=== PATIENT | male | born 1950 | race American Indian/Alaskan Native ===

== ENCOUNTER 2020-03-13 06:08 | Observation (INO) | payer BC, MEDICARE ==
--- NOTE | 2020-03-06 13:36 | Anesthesia Consultation ---
Anesthesia Consult and Med Hx Date of service: 03/13/20 - Airway Anesthetic Teeth Evaluation: Dentures, Edentulous ROM Head & Neck: Adequate Mental/Hyoid Distance: Adequate Mallampati Class: Class II Intubation Access Assessment: Good - Pre-Operative Health Status ASA Pre-Surgery Classification: ASA2 Proposed Anesthetic Plan: General - Pulmonary Hx Smoking: Yes (1/2 PPD X 10 YRS) Hx Respiratory Symptoms: No (+2FS) Hx Sleep Apnea: No (PETR PRE SCREEN HIGH RISK) - Cardiovascular System Hx Hypertension: Yes (X 10 YRS) Hx Heart Murmur: Yes (CAUSES NO PROBLEMS) - Central Nervous System Hx Psychiatric Problems: No - Gastrointestinal Hx Gastroesophageal Reflux Disease: No - Endocrine Hx Renal Disease: No Hx Non-Insulin Dependent Diabetes: Yes - Hematic Hx Anemia: No Hx Sickle Cell Disease: No - Other Systems Hx Obesity: Yes
[2020-03-06 14:04] LABS: Alanine Aminotransferase 47 units/L (7-56); Albumin 4.4 g/dL (3.9-5); BUN/Creatinine Ratio 13; Blood Urea Nitrogen 14 mg/dL (9-20); Hemolysis Index 7
[2020-03-06 18:05] LABS: Basophils # (Auto) 0.2 K/mm3 (0.0-0.1); Eosinophils # (Auto) 0.1 K/mm3 (0.0-0.4); Eosinophils % (Auto) 1.8 % (0.0-4.3); Hematocrit 42.6 % (35.5-45.6); Hemoglobin 13.7 gm/dl (11.8-15.2); Lymphocytes # (Auto) 3.7 K/mm3 (1.2-5.4); Lymphocytes % (Auto) 45.4 % (13.4-35.0); Mean Corpuscular HGB Conc 32 % (32-34); Mean Corpuscular Volume 72 fl (84-94); Monocytes # (Auto) 0.4 K/mm3 (0.0-0.8); Monocytes % (Auto) 4.6 % (0.0-7.3); Platelet Count 225 K/mm3 (140-440); Red Cell Distribution Width 15.7 % (13.2-15.2)
[~2020-03-13 06:08] MED LIST: ACETAMINOPHEN 500 MG TAB PO NR; BACTERIOSTATIC SODIUM CHLORIDE 0.9% 30 ML VIAL INFILTRATI ONE; CELECOXIB 200 MG CAP PO NR; GABAPENTIN 300 MG CAP PO NR; LACTATED RINGERS 1,000 ML IV SCH; MAGNESIUM OXIDE 400 MG TAB PO NR; MIDAZOLAM 2 MG/2 ML INJ IV NR
[2020-03-13] MEDS ORDERED: CITRIC ACID-SOD CITRATE 500 ML IV ONE (07:02)
[2020-03-13] MEDS ORDERED: METHYLENE BLUE 50 MG/10 ML AMP ONE (07:03)
[2020-03-13] MEDS ORDERED: BUPIVACAINE-EPINEPHRINE/PF 0.5%-1:200,000 (30 ML) VIAL INFILTRATI ONE ×2 (07:03→08:30)
[2020-03-13] MEDS ORDERED: THROMBIN (RECOMBINANT) 5,000 UNIT VIAL TP ONE ×2 (07:04→10:00)
[2020-03-13] MEDS ORDERED: HYDROmorphone 1 MG/1 ML INJ ONE (07:15)
[2020-03-13] MEDS ORDERED: ROCURONIUM 50 MG/5 ML INJ IV ONE ×2 (07:15→08:47)
[2020-03-13] MEDS ORDERED: LIDOCAINE MPF (2%) 20 MG/1 ML VIAL 5 ML ONE (07:15)
[2020-03-13] MEDS ORDERED: propofoL 200 MG/20 ML VIAL IV ONE (07:15)
[2020-03-13] MEDS ORDERED: CALCIUM CHLORIDE 1,000 MG/10 ML SYRINGE IV ONE ×2 (07:17→10:00)
[2020-03-13] MEDS ORDERED: HYDROmorphone 1 MG/1 ML INJ IV PRN (07:23)
[2020-03-13] MEDS ORDERED: ONDANSETRON 4 MG/2 ML INJ IV PRN ×2 (07:23→11:00)
--- NOTE | 2020-03-13 07:23 | Anesthesia Day of Surgery ---
Anesthesia Day of Surgery - Day of Surgery Patient Examined: Yes Patient H&P Reviewed: Yes Patient is NPO: Yes Beta Blockers: Yes (bystolic today AM)
[2020-03-13] MEDS ORDERED: CITRIC ACID-SOD CITRATE SOLN 500 ML IV SOLN IV ONE (08:30)
[2020-03-13] MEDS ORDERED: SODIUM CHLORIDE 0.9% IRRIG SOLN 2000 ML IR ONE (08:30)
[2020-03-13] MEDS ORDERED: WATER FOR IRRIG STERILE 1,500 ML BOTTLE IR ONE (08:30)
[2020-03-13] MEDS ORDERED: SODIUM CHLORIDE 0.9% IRR 1,500 ML BOTTLE IR ONE (08:31)
[2020-03-13] MEDS ORDERED: METHYLENE BLUE 50 MG/10 ML AMP IV ONE (09:57)
[2020-03-13] MEDS ORDERED: SODIUM CHLORIDE 0.9% 1000 ML 1,000 ML ONE (10:12)
[2020-03-13] MEDS ORDERED: GLYCOPYRROLATE 0.4 MG/2 ML INJ ONE (10:29)
[2020-03-13] MEDS ORDERED: NEOSTIGMINE 10MG/10 ML INJ MDV ONE (10:29)
[2020-03-13] MEDS ORDERED: ONDANSETRON 4 MG/2 ML INJ ONE (10:34)
[2020-03-13] MEDS ORDERED: KETOROLAC 30 MG/1 ML INJ ONE (10:34)
--- NOTE | 2020-03-13 10:39 | Short Stay Summary ---
Short Stay Documentation Date of service: 03/13/20 - History H&P: obtained from office - Allergies and Medications Current Medications: Allergies Penicillins Allergy (Verified 03/02/20 17:18) Rash Home Medications Medication Instructions Recorded Confirmed Last Taken Type Aspirin [Adult Aspirin] 81 mg PO DAILY 03/03/20 03/13/20 1 Week Ago History ~03/06/20 AtorvaSTATin [Lipitor] 20 mg PO DAILY 03/06/20 03/06/20 03/12/20 History Glimepiride [Amaryl] 2 mg PO DAILY 03/06/20 03/06/20 03/12/20 History Nebivolol HCl [Bystolic] 5 mg PO DAILY 03/06/20 03/13/20 03/13/20 05:00 History Sitagliptin Phos/Metformin HCl 1 each PO DAILY 03/06/20 03/06/20 03/12/20 History [Janumet 50-1,000 mg Tablet] Valsartan/Hydrochlorothiazide 1 each PO DAILY 03/06/20 03/06/20 03/12/20 History [Valsartan-Hctz 320-25 mg Tab] allopurinoL [Zyloprim] 200 mg PO QDAY 03/06/20 03/06/20 03/12/20 History amLODIPine [Norvasc] 10 mg PO DAILY 03/06/20 03/06/20 03/12/20 History Active Medications Acetaminophen (Acetaminophen 500 Mg Tab) 1,000 mg PO ONCE NR Stop: 03/13/20 20:00 Last Admin: 03/13/20 06:45 Dose: 1,000 mg Documented by: Celecoxib (Celecoxib 200 Mg Cap) 200 mg PO PREOP NR Stop: 03/13/20 20:00 Last Admin: 03/13/20 06:45 Dose: 200 mg Documented by: Gabapentin (Gabapentin 300 Mg Cap) 300 mg PO PREOP NR Stop: 03/13/20 20:00 Last Admin: 03/13/20 06:45 Dose: 300 mg Documented by: Hydromorphone HCl (Hydromorphone 1 Mg/1 Ml Inj) 0.5 mg IV Q10MIN PRN PRN Reason: Pain , Severe (7-10) Stop: 03/13/20 22:00 Lactated Ringer's (Lactated Ringers) 1,000 mls @ 125 mls/hr IV DIRECT PADMINI Last Admin: 03/13/20 06:35 Dose: 125 mls/hr Documented by: Magnesium Oxide (Magnesium Oxide 400 Mg Tab) 400 mg PO ONCE NR Stop: 03/13/20 20:00 Last Admin: 03/13/20 06:45 Dose: 400 mg Documented by: Midazolam HCl (Midazolam 2 Mg/2 Ml Inj) 2 mg IV PREOP NR Stop: 03/13/20 16:00 Last Admin: 03/13/20 06:50 Dose: 2 mg Documented by: - Brief post op/procedure progress note Date of procedure: 03/13/20 Pre-op diagnosis: prostate cancer Post-op diagnosis: same Procedure: robotic prostatectomy Anesthesia: GETA Surgeon: CARLI WEINBERG Estimated blood loss: other (400cc) Pathology: list (prostate) Specimen disposition: to lab Condition: stable - Hospital course Hospital course: bactrim,norco, post op info on chart gopal removed home with augustin - Disposition Condition at discharge: Stable Short Stay Discharge Plan Follow up with: CELIA SOUZA [Other] - 7 Days
[2020-03-13] MEDS ORDERED: SODIUM CHLORIDE 0.9% 1000 ML 1,000 ML IV SCH (10:45)
[2020-03-13] MEDS ORDERED: DEXTROSE 50% IN WATER (25GM) 50 ML SYRINGE IV PRN (11:00)
[2020-03-13] MEDS ORDERED: HYDROcodone/ACETAMINOPHEN 5-325 MG TAB PO PRN (11:00)
[2020-03-13] MEDS ORDERED: MORPHINE 2 MG/1 ML INJ IV PRN (11:00)
[2020-03-13] MEDS ORDERED: NALOXONE 0.4 MG/1 ML INJ IV PRN (11:00)
--- NOTE | 2020-03-13 11:13 | Operative Report ---
PREOPERATIVE DIAGNOSIS: Prostate cancer. POSTOPERATIVE DIAGNOSIS: Prostate cancer. PROCEDURE: Robotic-assisted laparoscopic prostatectomy, bladder neck suspension. SURGEON: Travis Romeo MD SOFTBALL COACH: Viv Soares. ESTIMATED BLOOD LOSS: 400 mL. FLUIDS: Crystalloid, 250 of Cell Saver. DRAINS: Justin-Joel drain. COMPLICATIONS: No complications. INDICATIONS: This 69-year-old gentleman initially seen by Dr. Gayle and was diagnosed with prostate cancer. After discussing options, he voiced interest in robotic prostatectomy. He was seen in consultation with his . Risks, benefits, and complications were explained. The patient agreed to proceed with surgical intervention. DESCRIPTION OF PROCEDURE: The patient was taken to the operative suite, placed in a supine position. After adequate general anesthesia, he was then placed in a modified dorsal lithotomy position, prepped and draped in the sterile fashion. Goncalves catheter was placed on the operative field, 1 cm supraumbilical incision was made. Towel clips were placed. Anterior traction was performed. Veress needle was used. Drop test negative. CO2 was placed. Opening pressure was 3 cm of water. Insufflation to 15 cm of water was performed without difficulty. The patient was placed in exaggerated Trendelenburg position. A 10 mm trocar with a 0-degree lens was placed in the abdomen without difficulty. No signs of injury as well as no signs of metastasis, 15 cm cephalad the pubic symphysis and then 9 cm lateral and an additional 9 cm lateral, those measurements were used to place robotic ports, 8 mm ports x2 on the left, 8 mm port and a 10 mm helper port on the right. Also, a 5 mm helper port on the right. Attention was then taken to the posterior aspect of the prostate. It was grasped. The bladder was grabbed with the robotic arm. Second arch was scored exposing the seminal vesicles and vas deferens. Dissection was taken to the apex of the prostate without difficulty. Next, attention was taken to the anterior abdominal wall, which was scored lateral to the lateral umbilical ligament and then across the midline, bladder flap was created exposing the pubic rami bilaterally. Dissection to the dorsal vein complex and pelvic sidewall. Dorsal vein complex was controlled with a 60 mm vascular stapler. There was some tedious bleeding and therefore was oversewn with a 2-0 Vicryl in a [id number] fashion. Endopelvic fascia was opened bilaterally. Lateral pedicles were dissected. Attention was taken to the anterior bladder neck, which was scored exposing the Goncalves catheter, it was deflated, pulled up and used for anterior traction. Methylene blue was administered intravenously, could be appreciated in the ureteral orifices. Posterior bladder neck was transected exposing the seminal vesicles and vas deferens, which was pulled anteriorly. Lateral pedicles were then controlled with a 60 mm vascular stapler bilaterally. Significant adipose tissue could be appreciated. Neurovascular bundle could not be appreciated as well as he had some small periprostatic blood vessels. Dissection was taken to the apex of the prostate. Anterior urethra was transected exposing the Goncalves catheter, which was pulled to the distal aspect of the urethra. Posterior aspect was transected and dissected out. Prostate was then placed in the EndoCatch bag. Copious irrigation was performed. Adequate hemostasis was achieved. There was no rectal injury. Next, attention was taken to the bladder neck at the 7 o'clock and 5 o'clock positions. A 2-0 Vicryl was used for bladder neck reconstruction to the size to accommodate an 18-Maldivian Goncalves. Next, using a double arm V-Loc stitch starting at the 6 o'clock position of the bladder neck and the corresponding aspect of the urethra, running stitch was performed. A new 18-Maldivian Goncalves catheter was then placed in the urethra and bladder. Anastomosis was cinched down, 15 mL sterile water in the balloon. Bladder was irrigated free of clot. Bladder neck suspension was performed placing the V-Loc stitch in the posterior aspect of the pubic rami bilaterally. [place] were cut and removed. Platelet-rich plasma and platelet poor plasma was injected around the urethra as well as a platelet membrane. Justin-Joel drain was placed in the pelvis and brought out on the left side, removing the #2 port. Ports were removed. No signs of bleeding. Robot was undocked. The supraumbilical incision was extended slightly to allow removal of the prostate. A 0 Vicryl was used to close the supraumbilical incision in an interrupted fashion. The skin was closed with 2-0 Vicryl in an interrupted fashion. Justin-Joel drain was secured with a 2-0 silk in interrupted fashion on the skin. Goncalves catheter sideport was folded over and tied with 0 silk in interrupted fashion. The patient tolerated the procedure well and was extubated and taken to recovery room. He will be observed overnight and go home on Bactrim and Andrew. Viv Soares was present throughout the procedure to assist at the bedside. JOB# [id number] [facility]
--- NOTE | 2020-03-13 12:42 | Post Anesthesia Evaluation ---
- Post Anesthesia Evaluation Patient Participated: Yes Airway Patent: Yes Stable Respiratory Function: Yes Nausea/Vomiting: No Temp > 96.8F: Yes Pain Manageable: Yes Adequeate Hydration: Yes Anesthesia Complications: No
[2020-03-13] MEDS: metFORMIN XR 500MG TAB PO SCH (15:43)
[2020-03-13] MEDS: METOPROLOL SUCCINATE XL 50 MG TAB PO SCH (15:45)
[2020-03-13] MEDS: hydroCHLOROthiazide 25 MG TAB PO SCH (15:45)
[2020-03-13] MEDS: LINAGLIPTIN 5 MG TAB PO SCH (15:46)
--- NOTE | 2020-03-13 16:23 | Consultation ---
History of Present Illness - Reason for Consult Consult date: 03/13/20 Diabetes Mellitus Requesting physician: CARLI WEINBERG - History of Present Illness Patient is a 69 year old male with past medical hx of HTN, Diabetes mellitus who presented for robotic prostatectomy Which was done successfully without any complaints. He at this time denies any chest pain, nausea vomiting, he reports mid discomfort at the surgical site. He reports that his DM and BP are well m anaged at home but that he unfortunately smokes half a pack a year for many years now. Past History Past Medical History: diabetes, hypertension, hyperlipidemia, other (prostate CA) Past Surgical History: Other (robotic prostatectomy) Social history: no significant social history, lives with family, full code Family history: no significant family history Medications and Allergies Allergies Allergy/AdvReac Type Severity Reaction Status Date / Time Penicillins Allergy Rash Verified 03/02/20 17:18 Home Medications Medication Instructions Recorded Confirmed Last Taken Type Aspirin [Adult Aspirin] 81 mg PO DAILY 03/03/20 03/13/20 1 Week Ago History ~03/06/20 AtorvaSTATin [Lipitor] 20 mg PO DAILY 03/06/20 03/06/20 03/12/20 History Glimepiride [Amaryl] 2 mg PO DAILY 03/06/20 03/06/20 03/12/20 History Nebivolol HCl [Bystolic] 5 mg PO DAILY 03/06/20 03/13/20 03/13/20 05:00 History Sitagliptin Phos/Metformin HCl 1 each PO DAILY 03/06/20 03/06/20 03/12/20 History [Janumet 50-1,000 mg Tablet] Valsartan/Hydrochlorothiazide 1 each PO DAILY 03/06/20 03/06/20 03/12/20 History [Valsartan-Hctz 320-25 mg Tab] allopurinoL [Zyloprim] 200 mg PO QDAY 03/06/20 03/06/20 03/12/20 History amLODIPine [Norvasc] 10 mg PO DAILY 03/06/20 03/06/20 03/12/20 History Active Meds: Active Medications Acetaminophen (Acetaminophen 500 Mg Tab) 1,000 mg PO ONCE NR Stop: 03/13/20 20:00 Last Admin: 03/13/20 06:45 Dose: 1,000 mg Documented by: Hydrocodone Bitart/Acetaminophen (Hydrocodone/Acetaminophen 5-325 Mg Tab) 2 each PO Q4H PRN PRN Reason: Pain, Moderate (4-6) Allopurinol (Allopurinol 100 Mg Tab) 200 mg PO QDAY [facility] Amlodipine Besylate (Amlodipine 10 Mg Tab) 10 mg PO DAILY [facility] Atorvastatin Calcium (Atorvastatin 20 Mg Tab) 20 mg PO DAILY PADMINI Celecoxib (Celecoxib 200 Mg Cap) 200 mg PO PREOP NR Stop: 03/13/20 20:00 Last Admin: 03/13/20 06:45 Dose: 200 mg Documented by: Dextrose (Dextrose 50% In Water (25gm) 50 Ml Syringe) 50 ml IV Q30MIN PRN; Protocol PRN Reason: Hypoglycemia Gabapentin (Gabapentin 300 Mg Cap) 300 mg PO PREOP NR Stop: 03/13/20 20:00 Last Admin: 03/13/20 06:45 Dose: 300 mg Documented by: Glimepiride (Glimepiride 2 Mg Tab) 2 mg PO QDDIAB [facility] Hydrochlorothiazide (Hydrochlorothiazide 25 Mg Tab) 25 mg PO QDAY [facility] Last Admin: 03/13/20 15:45 Dose: Not Given Documented by: Hydromorphone HCl (Hydromorphone 1 Mg/1 Ml Inj) 0.5 mg IV Q10MIN PRN PRN Reason: Pain , Severe (7-10) Stop: 03/13/20 22:00 Lactated Ringer's (Lactated Ringers) 1,000 mls @ 125 mls/hr IV DIRECT [facility] Last Admin: 03/13/20 06:35 Dose: 125 mls/hr Documented by: Sodium Chloride (Nacl 0.9% 1000 Ml) 1,000 mls @ 125 mls/hr IV DIRECT [facility] Linagliptin (Linagliptin 5 Mg Tab) 5 mg PO QDAY [facility] Last Admin: 03/13/20 15:46 Dose: 5 mg Documented by: Magnesium Oxide (Magnesium Oxide 400 Mg Tab) 400 mg PO ONCE NR Stop: 03/13/20 20:00 Last Admin: 03/13/20 06:45 Dose: 400 mg Documented by: Metformin HCl (Metformin Xr 500mg Tab) 1,000 mg PO QDDIAB [facility] Last Admin: 03/13/20 15:43 Dose: 1,000 mg Documented by: Metoprolol Succinate (Metoprolol Succinate Xl 50 Mg Tab) 50 mg PO QDAY [facility] Last Admin: 03/13/20 15:45 Dose: Not Given Documented by: Morphine Sulfate (Morphine 2 Mg/1 Ml Inj) 2 mg IV Q4H PRN PRN Reason: Pain, Moderate (4-6) Naloxone HCl (Naloxone 0.4 Mg/1 Ml Inj) 0.1 mg IV Q2MIN PRN PRN Reason: Res Rate </= 8 or 02 SAT < 92% Ondansetron HCl (Ondansetron 4 Mg/2 Ml Inj) 4 mg IV Q8H PRN PRN Reason: Nausea And Vomiting Valsartan (Valsartan 160mg Tab) 320 mg PO QDAY [facility] Zolpidem Tartrate (Zolpidem 5 Mg Tab) 5 mg PO QHS PRN PRN Reason: Sleep Review of Systems All systems: negative Genitourinary Male: dysuria, hematuria (mild) Exam - Constitutional Vitals: Temp Pulse Resp BP Pulse Ox 97.5 F L 65 16 129/75 97 03/13/20 12:25 03/13/20 15:45 03/13/20 12:25 03/13/20 15:45 03/13/20 12:25 General appearance: Present: no acute distress, well-nourished - EENT Eyes: Present: PERRL, EOM intact ENT: clear oral mucosa - Neck Neck: Present: supple, normal ROM - Respiratory Respiratory effort: normal Respiratory: bilateral: CTA - Cardiovascular Rhythm: regular Heart Sounds: Present: S1 & S2. Absent: systolic murmur, diastolic murmur - Extremities Extremities: no ischemia, pulses intact, pulses symmetrical, No edema, normal temperature, normal color, Full ROM Peripheral Pulses: within normal limits - Abdominal General gastrointestinal: Present: soft, non-tender, non-distended, normal bowel sounds - Integumentary Integumentary: Present: clear, warm, dry - Musculoskeletal Musculoskeletal: strength equal bilaterally - Psychiatric Psychiatric: appropriate mood/affect, intact judgment & insight, memory intact, cooperative - Neurologic Neurologic: CNII-XII intact, moves all extremities - Allied Health Allied health notes reviewed: nursing Results - Labs CBC & Chem 7: 03/06/20 13:15 03/06/20 13:15 Labs: Abnormal lab results 03/13/20 03/13/20 Range/Units 06:34 11:02 POC Glucose 114 H 157 H (70-105) mg/dL Assessment and Plan Patient is a 69 year old male with past medical hx of HTN, Diabetes mellitus who presented for robotic prostatectomy Which was done successfully without any complaints. He at this time denies any chest pain, nausea vomiting, he reports mid discomfort at the surgical site. He reports that his DM and BP are well managed at home but that he unfortunately smokes half a pack a year for many years now. Prostate CA, S/P Prostectomy POD 0 Hypertension Diabetes Mellitus Hypokalemia Plan Continue Supportive care Continue BP Replace K Tight glycemic control Goncalves and Pain control per Surgery Thank you for letting me take part in the care of your patient, will follow with you while in house. DVT/GI
[2020-03-13] MEDS ORDERED: ZOLPIDEM 5 MG TAB PO PRN (22:00)
[2020-03-14 07:41] VITALS: BP 116/57
[2020-03-14] MEDS: METOPROLOL SUCCINATE XL 50 MG TAB PO SCH ×2 (07:58→11:24)
[2020-03-14] MEDS: hydroCHLOROthiazide 25 MG TAB PO SCH ×2 (07:58→11:24)
[2020-03-14] MEDS: metFORMIN XR 500MG TAB PO SCH (07:59)
[2020-03-14] MEDS ORDERED: GLIMEPIRIDE 2 MG TAB PO SCH (08:00)
[2020-03-14] MEDS: LINAGLIPTIN 5 MG TAB PO SCH ×2 (08:07→11:25)
--- NOTE | 2020-03-14 08:21 | Progress Note ---
Assessment and Plan Assessment and plan: Patient is a 69 year old male with past medical hx of HTN, Diabetes mellitus who presented for robotic prostatectomy Which was done successfully without any complaints. He at this time denies any chest pain, nausea vomiting, he reports mid discomfort at the surgical site. He reports that his DM and BP are well managed at home but that he unfortunately smokes half a pack a year for many years now. Prostate CA, S/P Prostectomy POD 0 Hypertension Diabetes Mellitus Hypokalemia Tobacco use Plan Stable from medical standpoint for discharge extensive discussion with the patient on tobacco use disorder patient verbalized understanding. 15 minutes spent. History Interval history: Patient seen and examined this morning clinically stable no new complaints. A nticipate discharge today Hospitalist Physical - Physical exam Narrative exam: VITAL SIGNS: Reviewed. GENERAL: The patient appears normally developed, Vital signs as documented. HEAD: No signs of head trauma. EYES: Pupils are equal. Extraocular motions intact. EARS: Hearing grossly intact. MOUTH: Oropharynx is normal. NECK: No adenopathy, no JVD. CHEST: Chest with clear breath sounds bilaterally. No wheezes, rales, or rhonchi. CARDIAC: Regular rate and rhythm. S1 and S2, without murmurs, gallops, or rubs . VASCULAR: No Edema. Peripheral pulses normal and equal in all extremities. ABDOMEN: Soft, non tender and non distended. No rebound or guarding, and no masses palpated. Bowel Sounds normal. MUSCULOSKELETAL: Good range of motion of all major joints. Extremities without clubbing, cyanosis or edema. NEUROLOGIC EXAM: Alert and oriented x 3 No focal sensory or strength deficits. Speech normal. Follows commands. PSYCHIATRIC: Mood normal. SKIN: detail exam as documented in skin assessment - Constitutional Vitals: Temp Pulse Resp BP Pulse Ox 98.0 F 61 20 116/57 93 03/14/20 07:26 03/14/20 07:58 03/14/20 07:26 03/14/20 07:58 03/14/20 07:26 General appearance: Present: no acute distress, well-nourished Results - Labs CBC & Chem 7: 03/14/20 08:23 03/14/20 08:23 Labs: Laboratory Last Values WBC 8.2 K/mm3 (4.5-11.0) 03/06/20 13:15 RBC 5.90 M/mm3 (3.65-5.03) H 03/06/20 13:15 Hgb 13.7 gm/dl (11.8-15.2) 03/06/20 13:15 Hct 42.6 % (35.5-45.6) 03/06/20 13:15 MCV 72 fl (84-94) L 03/06/20 13:15 MCH 23 pg (28-32) L 03/06/20 13:15 MCHC 32 % (32-34) 03/06/20 13:15 RDW 15.7 % (13.2-15.2) H 03/06/20 13:15 Plt Count 225 K/mm3 (140-440) 03/06/20 13:15 Lymph % (Auto) 45.4 % (13.4-35.0) H 03/06/20 13:15 [place] % (Auto) 4.6 % (0.0-7.3) 03/06/20 13:15 Eos % (Auto) 1.8 % (0.0-4.3) 03/06/20 13:15 Baso % (Auto) 2.0 % (0.0-1.8) H 03/06/20 13:15 Lymph # (Auto) 3.7 K/mm3 (1.2-5.4) 03/06/20 13:15 [place] # (Auto) 0.4 K/mm3 (0.0-0.8) 03/06/20 13:15 Eos # (Auto) 0.1 K/mm3 (0.0-0.4) 03/06/20 13:15 Baso # (Auto) 0.2 K/mm3 (0.0-0.1) H 03/06/20 13:15 Seg Neutrophils % 46.2 % (40.0-70.0) 03/06/20 13:15 Seg Neutrophils # 3.8 K/mm3 (1.8-7.7) 03/06/20 13:15 Sodium 138 mmol/L (137-145) 03/06/20 13:15 Potassium 3.4 mmol/L (3.6-5.0) L 03/06/20 13:15 Chloride 98.5 mmol/L (98-107) 03/06/20 13:15 Carbon Dioxide 32 mmol/L (22-30) H 03/06/20 13:15 Anion Gap 11 mmol/L 03/06/20 13:15 BUN 14 mg/dL (9-20) 03/06/20 13:15 Creatinine 1.1 mg/dL (0.8-1.3) 03/06/20 13:15 Estimated GFR > 60 ml/min 03/06/20 13:15 BUN/Creatinine Ratio 13 % 03/06/20 13:15 Glucose 292 mg/dL (75-100) H 03/06/20 13:15 POC Glucose 116 mg/dL (70-105) H 03/14/20 07:24 Calcium 10.0 mg/dL (8.4-10.2) 03/06/20 13:15 Total Bilirubin 0.80 mg/dL (0.1-1.2) 03/06/20 13:15 AST 39 units/L (5-40) 03/06/20 13:15 ALT 47 units/L (7-56) 03/06/20 13:15 Alkaline Phosphatase 114 units/L (35-129) 03/06/20 13:15 Total Protein 7.9 g/dL (6.3-8.2) 03/06/20 13:15 Albumin 4.4 g/dL (3.9-5) 03/06/20 13:15 Albumin/Globulin Ratio 1.3 % 03/06/20 13:15 Coronavirus (PCR) Negative (Negative) 03/06/20 13:10 Blood Type O POSITIVE 03/13/20 06:30 Antibody Screen Negative 03/13/20 06:30 Goncalves/IV: Voiding Method Indwelling Catheter IV Catheter Type [Right INT / Saline Lock Forearm] IV Catheter Type [Left Forearm INT / Saline Lock ] Active Medications - Current Medications Current Medications: Generic Name Dose Route Start Last Admin Trade Name Freq PRN Reason Stop Dose Admin Hydrocodone Bitart/Acetaminophen 2 each 03/13/20 11:00 Hydrocodone/Acetaminophen 5-325 Mg Tab PO Q4H PRN Pain, Moderate (4-6) Allopurinol 200 mg 03/14/20 10:00 Allopurinol 100 Mg Tab PO QDAY [facility] Amlodipine Besylate 10 mg 03/14/20 10:00 Amlodipine 10 Mg Tab PO DAILY [facility] Atorvastatin Calcium 20 mg 03/14/20 10:00 Atorvastatin 20 Mg Tab PO DAILY [facility] Dextrose 50 ml 03/13/20 11:00 Dextrose 50% In Water (25gm) 50 Ml Syringe IV Q30MIN PRN Hypoglycemia Protocol Glimepiride 2 mg 03/14/20 08:00 Glimepiride 2 Mg Tab PO QDDIAB PADMINI Hydrochlorothiazide 25 mg 03/13/20 12:00 03/14/20 07:58 Hydrochlorothiazide 25 Mg Tab PO 25 mg QDAY PADMINI Administration Lactated Ringer's 1,000 mls @ 125 mls/hr 03/13/20 06:00 03/13/20 06:35 Lactated Ringers IV 125 mls/hr DIRECT PADMINI Administration Sodium Chloride 1,000 mls @ 125 mls/hr 03/13/20 10:45 Nacl 0.9% 1000 Ml IV DIRECT P[facility] Linagliptin 5 mg 03/13/20 12:00 03/14/20 08:07 Linagliptin 5 Mg Tab PO 5 mg QDAY PADMIN[facility] Administration Metformin HCl 1,000 mg 03/13/20 12:00 03/14/20 07:59 Metformin Xr 500mg Tab PO 1,000 mg QDDIAB PADMINI Administration Metoprolol Succinate 50 mg 03/13/20 12:00 03/14/20 07:58 Metoprolol Succinate Xl 50 Mg Tab PO 50 mg QDAY PADMINI Administration Morphine Sulfate 2 mg 03/13/20 11:00 03/14/20 07:55 Morphine 2 Mg/1 Ml Inj IV 2 mg Q4H PRN Administration Pain, Moderate (4-6) Naloxone HCl 0.1 mg 03/13/20 11:00 Naloxone 0.4 Mg/1 Ml Inj IV Q2MIN PRN Res Rate </= 8 or 02 SAT < 92% Ondansetron HCl 4 mg 03/13/20 11:00 Ondansetron 4 Mg/2 Ml Inj IV Q8H PRN Nausea And Vomiting Valsartan 320 mg 03/14/20 10:00 Valsartan 160mg Tab PO QDAY [facility] Zolpidem Tartrate 5 mg 03/13/20 22:00 Zolpidem 5 Mg Tab PO QHS PRN Sleep
[2020-03-14 09:25] LABS: Basophils # (Auto) 0.1 K/mm3 (0.0-0.1); Basophils % (Auto) 0.5 % (0.0-1.8); Eosinophils # (Auto) 0.1 K/mm3 (0.0-0.4); Hematocrit 36.5 % (35.5-45.6); Hemoglobin 11.8 gm/dl (11.8-15.2); Mean Corpuscular HGB Conc 33 % (32-34); Mean Corpuscular Volume 73 fl (84-94); Monocytes # (Auto) 0.7 K/mm3 (0.0-0.8); Monocytes % (Auto) 6.8 % (0.0-7.3); Platelet Count 182 K/mm3 (140-440); Red Blood Count 5.03 M/mm3 (3.65-5.03); Red Cell Distribution Width 15.4 % (13.2-15.2)
[2020-03-14] MEDS ORDERED: [UNRECOGNIZED DRUG - OTHER] PO SCH (10:00)
[2020-03-14] MEDS ORDERED: NEBIVOLOL HCL 5 MG PO SCH (10:00)
[2020-03-14] MEDS ORDERED: NON-FORMULARY EACH (Sitagliptin Phos/Metformin Hcl [Janumet 50-1,000 Mg Tablet] 1 EACH Tab PO SCH (10:00)
[2020-03-14] MEDS ORDERED: VALSARTAN PO SCH (10:00)
[2020-03-14] MEDS ORDERED: amLODIPine 10 MG TAB PO SCH (10:00)
[2020-03-14] MEDS ORDERED: HYDROCHLOROTHIAZIDE PO SCH (10:00)
[2020-03-14] MEDS ORDERED: VALSARTAN 160MG TAB PO SCH (10:00)
[2020-03-14] MEDS ORDERED: allopurinoL 100 MG TAB PO SCH (10:00)
[2020-03-14 10:11] LABS: BUN/Creatinine Ratio 10; Blood Urea Nitrogen 10 mg/dL (9-20); Calcium 8.6 mg/dL (8.4-10.2); Hemolysis Index 9
== END 2020-03-14 11:49 | disposition home or self-care (01) ==
LOC: OR 06:08 → 3B-SURG 10:39
PROVIDERS: ADMIT Urology; ATTEND Urology
DX: C61 Malignant neoplasm of prostate (principal); Z20.828 Contact with and (suspected) exposure to other viral communicable diseases; I10 Essential (primary) hypertension; E11.9 Type 2 diabetes mellitus without complications; E78.5 Hyperlipidemia, unspecified; E87.6 Hypokalemia; F17.210 Nicotine dependence, cigarettes, uncomplicated; Z98.890 Other specified postprocedural states
CPT/HCPCS: 36415; 55866; 80048; 80053; 82962; 85025; 86850; 86900; 86901; 88309; 96374; 99406; A4217; A9270; G0378; J1170; J1885; J1956; J2250; J2270; J2405; J2704; J2710; J7030; J7120; Q9968; S2900; U0003

== ENCOUNTER 2020-05-11 10:38 | Outpatient (CLI) | payer BC ==
--- NOTE | 2020-05-11 12:03 | Cat Scan Report ---
CT ABDOMEN AND PELVIS WITHOUT CONTRAST HISTORY: Prostate cancer, pelvic pain. COMPARISON: None TECHNIQUE: Routine abdominal and pelvic CT exam performed without contrast. Lack of intravenous cont rast limits evaluation of the vascular and solid organs.. All CT scans at this location are performed using CT dose reduction for ALARA by means of automated exposure control. FINDINGS: CT ABDOMEN: Lung Bases: No significant abnormality. Liver: Decreased attenuation consistent with hepatic steatosis. Biliary: No significant abnormality. Spleen: No significant abnormality. Unenlarged. Pancreas: No significant abnormality. Adrenals: No significant abnormality. Kidneys: There is no acute renal abnormality. There is a 4 cm simple cyst in the lateral right kidney . Lymphatics: No lymphadenopathy. Vasculature: No significant abnormality. Bowel/Peritoneum: Nonobstructive bowel pattern. Diverticulosis without mesocolonic fat stranding. No free air. No free fluid. Normal appendix. CT PELVIC: : Prostate is surgically absent. There are no masses in the prostate fossa. Lymphatics: There is a mildly enlarged right internal iliac node measuring 2.2 x 1.1 cm. There is als o an enlarged right inguinal lymph node which measures 2.4 x 2.1 cm. Osseous Structures: No aggressive appearing osseous lesions. Additional Findings: None IMPRESSION: 1. Right internal iliac and right inguinal adenopathy concerning for possible metastatic adenopathy. 2. No additional evidence of metastatic disease. 3. Uninflamed colonic diverticulosis. 4. Hepatic steatosis. Signer Name: Narciso Elliott MD Signed: 05/11/2020 11:58 AM Workstation Name: [employer]
== END 2020-05-11 10:39 | disposition home or self-care (01) ==
LOC: CT 10:38
PROVIDERS: ATTEND Urology
DX: C61 Malignant neoplasm of prostate (principal); K76.0 Fatty (change of) liver, not elsewhere classified; N28.1 Cyst of kidney, acquired; K57.30 Diverticulosis of large intestine without perforation or abscess without bleeding; R59.0 Localized enlarged lymph nodes
CPT/HCPCS: 74176